=== PATIENT | female | born 1965 | race Caucasian/White ===

== ENCOUNTER 2021-01-29 14:06 | Emergency (ER) | payer OTHER ==
--- NOTE | 2021-01-29 14:34 | EDM.PDOC ---
ED HPI GENERAL MEDICAL PROBLEM - General Chief Complaint: Bite:Animal, Insect Stated Complaint: [id number] RIGHT HAND SWOLLEN HER DOG BIT HER Time Seen by Provider: 01/29/21 14:33 Source of Information: Reports: Patient, Family, Old Records, RN, RN Notes Reviewed History Limitations: Reports: No Limitations - History of Present Illness INITIAL COMMENTS - FREE TEXT/NARRATIVE: Patient presents to ED by POV following dog bite on Thursday. Patient reports that she had her tetanus last 2017 and the dog was fully vaccinated. She states that the dog has since last night. She had been old and sheepish and when she went to take her outside due to vomiting on Thursday, she got scared and bit her. At triage, her hand appears to have 3-4 puncture sites with one dried area with pus-like drainage, some redness and swelling. Patient reports more stiffness to hand but rates 7/10 pain. Onset Date: 01/25/21 Duration: Getting Worse Severity: Moderate Right Hand Pain Score (Numeric/FACES): 7 - Related Data Allergies Allergy/AdvReac Type Severity Reaction Status Date / Time amantadine Allergy Shaking Verified 01/29/21 14:39 Sulfa (Sulfonamide Allergy Itching Verified 01/29/21 14:39 Antibiotics) Past Medical History Cardiovascular History: Reports: High Cholesterol Respiratory History: Reports: Asthma Psychiatric History: Reports: Depression Social & Family History - Family History Family Medical History: No Pertinent Family History - Tobacco Use Tobacco Use Status *Q: Never Tobacco User Second Hand Smoke Exposure: No - Caffeine Use Caffeine Use: Reports: Coffee - Recreational Drug Use Recreational Drug Use: No ED ROS GENERAL - Review of Systems Review Of Systems: Comprehensive ROS is negative, except as noted in HPI. ED EXAM, ANIMAL BITE - Physical Exam Exam: See Below Exam Limited By: No Limitations General Appearance: Alert, WD/WN, No Apparent Distress Nose: Normal Inspection Throat/Mouth: Normal Inspection Head: Atraumatic, Normocephalic Neck: Normal Inspection Respiratory/Chest: No Respiratory Distress, Lungs Clear Cardiovascular: Normal Peripheral Pulses, Regular Rate, Rhythm Extremities: Normal Range of Motion, Normal Capillary Refill, Arm Pain (Left from finger tips 1-4 to distal forearm with mild soft tissue swelling, erythema, and increased warmth. Two puncture wounds to left thenar hand/wrist, and one to base of left thumb with no purulent drainage, nonfluctuant.) Neurological: Alert, Oriented, No Motor/Sensory Deficits Psychiatric: Normal Affect, Normal Mood Course - Vital Signs Last Recorded V/S: Last Vital Signs Temp 96.7 F L 01/29/21 14:30 Pulse 87 01/29/21 14:30 Resp 16 01/29/21 14:30 BP 138/77 01/29/21 14:30 Pulse Ox 94 L 01/29/21 14:30 - Orders/Labs/Meds Orders: Active Orders 24 hr Category Date Time Status Sodium Chloride 0.9% [Saline Flush] Med 01/29/21 14:43 Active 10 ml FLUSH ASDIRECTED PRN Peripheral IV Insertion Adult [OM.PC] Stat Oth 01/29/21 14:44 Ordered Medication Orders Sodium Chloride (Sodium Chloride 0.9% 10 Ml Syringe) 10 ml FLUSH ASDIRECTED PRN PRN Reason: Keep Vein Open Last Admin: 01/29/21 15:06 Dose: 10 ml Documented by: CRISTOFER Labs: Laboratory Tests 01/29/21 01/29/21 01/29/21 Range/Units 14:51 14:51 14:51 WBC 14.8 H (5.0-10.0) 10^3/uL RBC 4.31 (4.2-5.4) 10^6/uL Hgb 12.7 (12.0-16.0) g/dL Hct 38.8 (37.0-47.0) % MCV 90.0 (80-100) fL MCH 29.5 (27.0-34.0) pg MCHC 32.7 L (33.0-35.0) g/dL Plt Count 247 (150-450) 10^3/uL Neut % (Auto) 76.2 H (42.2-75.2) % Lymph % (Auto) 15.5 L (20.5-50.1) % [place] % (Auto) 8.1 H (2-8) % Eos % (Auto) 0.1 L (1.0-3.0) % Baso % (Auto) 0.1 (0.0-1.0) % Sodium 137 (136-145) mmol/L Potassium 3.6 (3.5-5.1) mmol/L Chloride 99 (98-107) mmol/L Carbon Dioxide 27 (21-32) mmol/L Anion Gap 14.6 H (7-13) mEq/L BUN 12 (7-18) mg/dL Creatinine 0.99 (0.55-1.02) mg/dL Est Cr Clr Drug Dosing 57.78 mL/min Estimated GFR (MDRD) 58 Glucose 100 H (70-99) mg/dL Calcium 8.9 (8.5-10.1) mg/dL C-Reactive Protein 26.8 H (0.0-0.9) mg/dL Meds: Medications Generic Name Dose Route Start Last Admin Trade Name Freq PRN Reason Stop Dose Admin Sodium Chloride 10 ml 01/29/21 14:43 01/29/21 15:06 Sodium Chloride 0.9% 10 Ml Syringe FLUSH 10 ml ASDIRECTED PRN Administration Keep Vein Open Discontinued Medications Generic Name Dose Route Start Last Admin Trade Name Freq PRN Reason Stop Dose Admin Piperacillin Sod/Tazobactam 100 mls @ 200 mls/hr 01/29/21 14:44 01/29/21 15:06 Sod 3.375 gm/ Sodium Chloride IV 01/29/21 15:13 200 mls/hr ONETIME ONE Administration - Re-Assessments/Exams Free Text/Narrative Re-Assessment/Exam: 01/29/21 16:30 Pt has outpt. orders for Ertapenem 1g IV qday x3 days, and a f/u appointment with Petra Hsu on Thursday. Departure - Departure Time of Disposition: 16:11 Disposition: Home, Self-Care 01 Condition: Fair Clinical Impression: Dog bite of left hand with infection Qualifiers: Encounter type: initial encounter Qualified Code(s): S61.452A - Open bite of left hand, initial encounter Cellulitis Qualifiers: Site of cellulitis: extremity Site of cellulitis of extremity: lower extremity Laterality: left Qualified Code(s): L03.116 - Cellulitis of left lower limb - Discharge Information *PRESCRIPTION DRUG MONITORING PROGRAM REVIEWED*: Not Applicable *COPY OF PRESCRIPTION DRUG MONITORING REPORT IN PATIENT [place]OBARDO: Not Applicable Instructions: Animal Bite, Adult, [id number], Cellulitis, Adult, [id number] Forms: ED Department Discharge Additional Instructions: Return to hospital and check in at front desk supervisor for outpatient IV antibiotics at 2:30PM on Thursday, , and Thursday (January 30, & ). You have an appointment with Petra Hsu at [facility] at 3:50PM on February 01 after your IV antibiotic. Rx: Bactroban (Mupirocin) Ointment 2% Return to ER if infection is worse at any time. Sepsis Event Note (ED) - Focused Exam Vital Signs: Vital Signs Temp Pulse Resp BP Pulse Ox 01/29/21 14:30 96.7 F L 87 16 138/77 94 L - My Orders Last 24 Hours: My Active Orders 01/29/21 14:43 Sodium Chloride 0.9% [Saline Flush] 10 ml FLUSH ASDIRECTED PRN 01/29/21 14:44 Peripheral IV Insertion Adult [OM.PC] Stat - Assessment/Plan Last 24 Hours: My Active Orders 01/29/21 14:43 Sodium Chloride 0.9% [Saline Flush] 10 ml FLUSH ASDIRECTED PRN 01/29/21 14:44 Peripheral IV Insertion Adult [OM.PC] Stat
[2021-01-29] MEDS ORDERED: Sodium Chloride 0.9% 10 ML Syringe FLUSH PRN (14:43)
[2021-01-29] MEDS ORDERED: Piperacillin/Tazobactam 3.375 GM in Sodium Chloride 0.9% 100 ML IV ONE (14:44)
[2021-01-29 15:16] LABS: ANION GAP 14.6 mEq/L (7-13)
== END 2021-01-29 16:22 | disposition home or self-care (01) ==
LOC: DL.ED 14:06
DX: S61.552A Open bite of left wrist, initial encounter (principal); S61.052A Open bite of left thumb without damage to nail, initial encounter; L03.116 Cellulitis of left lower limb; Z88.2 Allergy status to sulfonamides; Z88.5 Allergy status to narcotic agent; W54.0XXA Bitten by dog, initial encounter
CPT/HCPCS: 36415; 80048; 85025; 86140; 96365; 99283; J2543

== ENCOUNTER 2022-01-22 19:20 | Emergency (ER) | payer OTHER ==
[2022-01-22] MEDS ORDERED: Acetaminophen/oxyCODONE 325-5 MG Tab PO ONE (20:26)
[2022-01-22] MEDS ORDERED: Lidocaine 1% 5 ML VIAL INJECT ONE (21:05)
[2022-01-22] MEDS ORDERED: Bacitracin Oint 1 GM U/D Packet TOP ONE (21:05)
[2022-01-22] MEDS ORDERED: Amoxicillin/Clavulanate K 875-125 MG Tab PO ONE (21:05)
== END 2022-01-22 22:35 | disposition home or self-care (01) ==
LOC: DL.ED 19:20
DX: S62.660B Nondisplaced fracture of distal phalanx of right index finger, initial encounter for open fracture (principal); J44.9 Chronic obstructive pulmonary disease, unspecified; E78.00 Pure hypercholesterolemia, unspecified; E66.9 Obesity, unspecified; Z68.31 Body mass index [BMI] 31.0-31.9, adult; Z88.8 Allergy status to other drugs, medicaments and biological substances; Z88.2 Allergy status to sulfonamides; Z79.899 Other long term (current) drug therapy; Z87.891 Personal history of nicotine dependence; W26.8XXA Contact with other sharp object(s), not elsewhere classified, initial encounter
CPT/HCPCS: 73140; 99283; A9270